=== PATIENT | male | born 1995 | race Caucasian/White ===

== ENCOUNTER 2020-05-20 00:30 | Emergency (ER) | payer OTHER, BC ==
[2020-05-20 00:38] VITALS: BP 132/73; PULSE 79; TEMP 99.7; BMI 22.8
== END 2020-05-20 00:59 | disposition home or self-care (01) ==
LOC: FER 00:30
DX: M54.5 Low back pain (principal)
CPT/HCPCS: 99282-25

== ENCOUNTER 2021-05-27 17:59 | Emergency (ER) | payer OTHER ==
[2021-05-27 18:06] VITALS: BP 113/69; PULSE 91; TEMP 99.9; BMI 25.0
[2021-05-27] MEDS ORDERED: ACETAMINOPHEN 325 MG TABLET (FP) PO ONE (18:29)
[2021-05-27] MEDS ORDERED: ACETAMINOPHEN 325 MG TABLET (FP) ONE (18:46)
== END 2021-05-27 19:33 | disposition home or self-care (01) ==
LOC: FER 17:59
DX: M25.561 Pain in right knee (principal)
CPT/HCPCS: 73562-TC-RT-FY; 99283-25